=== PATIENT | female | born 1980 | race Caucasian/White ===

== ENCOUNTER → 2023-10-09 07:46 | Outpatient (REF) | payer BC, SELFPAY | LOC: PNTC 07:46 | PROVIDERS: ATTENDING PHYSICIAN Obstetrics & Gynecology | DX: O09.529 Supervision of elderly multigravida, unspecified trimester (principal); Z87.410 Personal history of cervical dysplasia; Z87.51 Personal history of pre-term labor | CPT/HCPCS: 76801; 76813 ==

== ENCOUNTER → 2024-02-28 08:12 | Outpatient (REF) | payer BC, SELFPAY | LOC: PNTC 08:12 | PROVIDERS: ATTENDING PHYSICIAN Obstetrics & Gynecology | DX: O09.529 Supervision of elderly multigravida, unspecified trimester (principal) | CPT/HCPCS: 59025; 76815 ==

== ENCOUNTER → 2024-03-06 10:07 | Outpatient (REF) | payer BC, SELFPAY | LOC: PNTC 10:07 | PROVIDERS: ATTENDING PHYSICIAN Obstetrics & Gynecology | DX: O09.529 Supervision of elderly multigravida, unspecified trimester (principal) | CPT/HCPCS: 59025; 76815 ==

== ENCOUNTER → 2024-03-13 07:50 | Outpatient (REF) | payer BC, SELFPAY | LOC: PNTC 07:50 | PROVIDERS: ATTENDING PHYSICIAN Obstetrics & Gynecology | DX: O09.529 Supervision of elderly multigravida, unspecified trimester (principal) | CPT/HCPCS: 59025; 76815 ==

== ENCOUNTER → 2024-03-20 08:07 | Outpatient (REF) | payer BC, SELFPAY | LOC: PNTC 08:07 | PROVIDERS: ATTENDING PHYSICIAN Obstetrics & Gynecology | DX: O09.529 Supervision of elderly multigravida, unspecified trimester (principal) | CPT/HCPCS: 59025; 76816 ==

== ENCOUNTER → 2024-03-27 08:01 | Outpatient (REF) | payer BC, SELFPAY | LOC: PNTC 08:01 | PROVIDERS: ATTENDING PHYSICIAN Obstetrics & Gynecology | DX: O09.219 Supervision of pregnancy with history of pre-term labor, unspecified trimester (principal) | CPT/HCPCS: 59025; 76815 ==

== ENCOUNTER → 2024-04-03 07:55 | Outpatient (REF) | payer BC, SELFPAY | LOC: PNTC 07:55 | PROVIDERS: ATTENDING PHYSICIAN Obstetrics & Gynecology | DX: O09.529 Supervision of elderly multigravida, unspecified trimester (principal); O09.519 Supervision of elderly primigravida, unspecified trimester | CPT/HCPCS: 59025; 76815 ==

== ENCOUNTER 2024-04-07 22:38 | Inpatient (IN) | payer BC, SELFPAY ==
[2024-04-07 23:23] VITALS: BP 132/86; BMI 33.0
[2024-04-07 23:40] LABS: % Basophils 0.4 % (0-2); % Eosinophils 0.4 % (0-6); % Immature Granulocytes 0.3 % (0-0.5); % Lymphocytes 35.1 % (20.5-51.1); % Monocytes 7.5 % (1.7-9.3); % Neutrophils 56.3 % (42.2-75.2); Absolute Lymphocytes 2.7 10^3/uL (1.2-3.4); Absolute Monocytes 0.6 10^3/uL (0.1-0.6); Absolute Neutrophils 4.3 10^3/uL (1.4-6.5); Hematocrit 33.5 % (37.0-47.0); Hemoglobin 11.2 g/dL (12.0-16.0); Mean Corp Hgb Conc. 33.4 g/dL (33.0-37.0); Mean Corpuscular Hgb 28.5 pg (27.0-31.0); Mean Corpuscular Volume 85.2 fL (81.0-99.0); Nucleated Red Blood Cells % 0 %; Platelet Count 211 10^3/uL (130-400); Red Blood Cell Count 3.93 10^6/uL (4.20-5.40); Red Cell Dist. Width 15.5 % (11.5-14.5); White Blood Cell Count 7.6 10^3/uL (4.8-10.8)
[2024-04-08] MEDS: TUMS CHEWABLE TABLET 400 MG PO ×2 (00:04→15:13)
[2024-04-08] MEDS: LR 1000 IV (00:05)
[2024-04-08] MEDS: STADOL 1 MG IV ×2 (04:38→08:08)
[2024-04-08] MEDS: SUBLIMAZE 100 MCG EPIDURAL (09:14)
[2024-04-08] MEDS: FENTANYL/BUPIVACAINE 100 EPIDURAL (09:14)
[2024-04-08] MEDS: PITOCIN 30 UNITS/NSS 500 ML IV (12:46)
[2024-04-08] MEDS: MOTRIN 600 MG PO (20:01)
[2024-04-09] MEDS: MOTRIN 600 MG PO ×4 (03:49→23:25)
[2024-04-09 05:14] LABS: Hematocrit 33.8 % (37.0-47.0)
[2024-04-09] MEDS: PRENATAL PLUS 1 TABLET PO (07:41)
[2024-04-09] MEDS: TYLENOL 650 MG PO ×4 (07:57→21:40)
[2024-04-09 12:21] LABS: Syphilis/T. pallidum Ab Reflex Negative (Negative)
[2024-04-09] MEDS: SENOKOT-S 1 TABLET PO (19:47)
[2024-04-10] MEDS: TYLENOL 650 MG PO (02:20)
--- NOTE | 2024-04-10 02:48 | DOWNTIME ---
There was a [employer] Client [employer]aper Downtime on 04/10/2024 from 0100 to 04/10/2023 at 0235 . Downtime documentation of patient's care, including medication administrations, has been reconciled in the electronic record per guidelines. Refer to the
patient's paper chart under the miscellaneous tab to see printed paper medication records and downtime forms.
[2024-04-10] MEDS: MOTRIN 600 MG PO (08:01)
[2024-04-10] MEDS: PRENATAL PLUS 1 TABLET PO ×2 (08:01→08:03)
== END 2024-04-10 11:39 | disposition home or self-care (01) | DRG 807 ==
LOC: LDRP 22:38
PROVIDERS: ADMITTING PHYSICIAN Obstetrics & Gynecology; ATTENDING PHYSICIAN Obstetrics & Gynecology; FAMILY PHYSICIAN Family Medicine
PROC: 10D07Z6 Extraction of Products of Conception, Vacuum, Via Natural or Artificial Opening (ICD-10-PCS; 2024-04-08)
PROC: 0KQM0ZZ Repair Perineum Muscle, Open Approach (ICD-10-PCS; 2024-04-08)
DX: O34.13 Maternal care for benign tumor of corpus uteri, third trimester (principal); Z37.0 Single live birth; O70.1 Second degree perineal laceration during delivery; Z3A.38 38 weeks gestation of pregnancy; D25.9 Leiomyoma of uterus, unspecified; O69.81X0 Labor and delivery complicated by cord around neck, without compression, not applicable or unspecified
CPT/HCPCS: 88307; 85014; 85018; 85025; 86780; 86850; 86900; 86901

== ENCOUNTER → 2024-07-05 10:56 | Outpatient (REF) | payer BC, SELFPAY | LOC: HWRAD 10:56 | PROVIDERS: ATTENDING PHYSICIAN Nurse Practitioner Family | DX: E04.1 Nontoxic single thyroid nodule (principal) | CPT/HCPCS: 76536 ==

== ENCOUNTER → 2024-08-07 07:33 | Outpatient (REF) | payer BC, SELFPAY ==
[2024-08-07 07:50] VITALS: BP 140/100; BP_SYST 73
== END ==
LOC: RADI 07:33
PROVIDERS: ATTENDING PHYSICIAN Nurse Practitioner Family
DX: E04.1 Nontoxic single thyroid nodule (principal)
CPT/HCPCS: 88173; 10005